=== PATIENT | female | born 1995 | race Caucasian/White ===

== ENCOUNTER 2021-03-24 20:28 | Observation (INO) | payer OTHER ==
[~2021-03-24] VITALS: Ht 167.7 cm; Wt 68.0 kg
--- NOTE | 2021-03-24 20:56 | ED General ---
General Stated Complaint: REDNESS/RASH/THROAT BLISTERS Source of Information: Patient Exam Limitations: No Limitations History of Present Illness Date Seen by Provider: Mar 24, 2021 Time Seen by Provider: 20:52 Initial Comments to ER with reports of diffuse rash onset this morning, oral lesions onset this evening. She finished Augmentin 2 days ago for an upper respiratory infection. 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 She had some diarrhea without blood or mucus the past few days. The upper respiratory infection symptoms have improved. Mother gave the patient some Depo-Medrol 80 mg, Tagamet and Zyrtec this evening which seemed to improve her symptoms. No fevers. She does have a history of urticaria Timing/Duration: 1-2 Days Severity: Moderate Associated Systoms: Denies Symptoms Allergies and Home Medications Allergies Coded Allergies: No Known Drug Allergies (Unverified , 03/24/21) Patient Home Medication List Home Medication List Reviewed: Yes Review of Systems Review of Systems Constitutional: see HPI EENTM: see HPI Physical Exam Vital Signs Vital Signs - First Documented 03/24/21 20:42 Temp 36.9 Pulse 113 Resp 18 B/P (MAP) 132/89 (103) Pulse Ox 96 O2 Delivery Room Air Capillary Refill : Height, Weight, BMI Height: '" Weight: lbs. oz. kg; BMI Method: General Appearance: No Apparent Distress, WD/WN Eyes: Bilateral Eye Normal Inspection, Bilateral Eye PERRL, Bilateral Eye EOMI HEENT: PERRL/EOMI, TMs Normal, Other (Ulcers on the soft palate, erythema of the pharynx. Whitish hairy tongue. No involvement of vermilion border) Neck: Full Range of Motion, Normal Inspection Respiratory: No Accessory Muscle Use, No Respiratory Distress Cardiovascular: Regular Rate, Rhythm, Normal Peripheral Pulses Gastrointestinal: Normal Bowel Sounds, Non Tender, Soft Extremity: Normal Capillary Refill, Normal Inspection Neurologic/Psychiatric: Alert, Oriented x3 Skin: Normal Color, Warm/Dry Lymphatic: Other (Diffuse macular rash without sloughing of skin or bulla. Negative Nikolsky sign) Progress/Results/Core Measures Suspected Sepsis SIRS Temperature: Pulse: Respiratory Rate: Laboratory Tests 03/24/21 20:55: White Blood Count 7.6 Blood Pressure / Mean: Laboratory Tests 03/24/21 20:55: Creatinine 0.80, Platelet Count 341, Total Bilirubin 0.7 Results/Orders Lab Results Laboratory Tests Test 03/24/21 20:55 Range/Units White Blood Count 7.6 4.3-11.0 10^3/uL Red Blood Count 5.34 H 3.80-5.11 10^6/uL Hemoglobin 16.3 H 11.5-16.0 g/dL Hematocrit 47 35-52 % Mean Corpuscular Volume 88 80-99 fL Mean Corpuscular Hemoglobin 31 25-34 pg Mean Corpuscular Hemoglobin Concent 35 32-36 g/dL Red Cell Distribution Width 12.1 10.0-14.5 % Platelet Count 341 130-400 10^3/uL Mean Platelet Volume 10.4 9.0-12.2 fL Immature Granulocyte % (Auto) 0 % Neutrophils (%) (Auto) 72 42-75 % Lymphocytes (%) (Auto) 21 12-44 % Monocytes (%) (Auto) 7 0-12 % Eosinophils (%) (Auto) 0 0-10 % Basophils (%) (Auto) 0 0-10 % Neutrophils # (Auto) 5.5 1.8-7.8 10^3/uL Lymphocytes # (Auto) 1.6 1.0-4.0 10^3/uL Monocytes # (Auto) 0.5 0.0-1.0 10^3/uL Eosinophils # (Auto) 0.0 0.0-0.3 10^3/uL Basophils # (Auto) 0.0 0.0-0.1 10^3/uL Immature Granulocyte # (Auto) 0.0 0.0-0.1 10^3/uL Erythrocyte Sedimentation Rate 2 0-20 MM/HR Sodium Level 140 135-145 MMOL/L Potassium Level 3.2 L 3.6-5.0 MMOL/L Chloride Level 102 98-107 MMOL/L Carbon Dioxide Level 26 21-32 MMOL/L Anion Gap 12 5-14 MMOL/L Blood Urea Nitrogen 12 7-18 MG/DL Creatinine 0.80 0.60-1.30 MG/DL Estimat Glomerular Filtration Rate > 60 BUN/Creatinine Ratio 15 Glucose Level 120 H 70-105 MG/DL Calcium Level 9.5 8.5-10.1 MG/DL Corrected Calcium 9.1 8.5-10.1 MG/DL Total Bilirubin 0.7 0.1-1.0 MG/DL Aspartate Amino Transf (AST/SGOT) 18 5-34 U/L Alanine Aminotransferase (ALT/SGPT) 14 0-55 U/L Alkaline Phosphatase 71 40-136 U/L C-Reactive Protein High Sensitivity 0.59 H 0.00-0.50 MG/DL Total Protein 7.9 6.4-8.2 GM/DL Albumin 4.5 3.2-4.5 GM/DL My Orders Orders - DIONY BRANCH APRN Cbc With Automated Diff (03/24/21 20:48) Hs C Reactive Protein (03/24/21 20:48) Comprehensive Metabolic Panel (03/24/21 20:48) Ed Iv/Invasive Line Start (03/24/21 20:48) Erythrocyte Sedimentation Rate (03/24/21 21:06) Lactated Ringers (Lr 1000 Ml Iv Solution (03/24/21 21:30) Diphenhydramine Injection (Benadryl Inje (03/24/21 21:45) Vital Signs/I&O 03/24/21 20:42 Temp 36.9 Pulse 113 Resp 18 B/P (MAP) 132/89 (103) Pulse Ox 96 O2 Delivery Room Air Capillary Refill : Departure Communication (Admissions) Mother is a nurse practitioner here, concerned this may represent a Avelar- Sudarshan syndrome. To me this looks more like a viral exanthem with some ulcers in the throat and likely medical center representative of a viral syndrome given her recent symptoms. However we will check some labs. 2137-has now developed some urticaria to various points on her arms torso and forehead. Itchy. I spoke with Dr. Sabillon, will admit observation status supportive care Impression Primary Impression: Rash and nonspecific skin eruption Additional Impression: Ulcerative pharyngitis Disposition: ADMITTED INPATIENT Condition: Stable Departure-Patient Inst. Decision time for Depature: 21:46 Referrals: NO,LOCAL PHYSICIAN (PCP/Family) Primary Care Physician DIONY BRANCH APRN Mar 24, 2021 20:56
[2021-03-24 21:06] LABS: BASOPHILS % (AUTO) 0 % (0-10); EOSINOPHILS % (AUTO) 0 % (0-10); HEMATOCRIT 47 % (35-52); HEMOGLOBIN 16.3 g/dL (11.5-16.0); LYMPHOCYTES # (AUTO) 1.6 10^3/uL (1.0-4.0); LYMPHOCYTES % (AUTO) 21 % (12-44); MEAN CORPUSCULAR HEMOGLOBIN 31 pg (25-34); MEAN CORPUSCULAR HGB CONC 35 g/dL (32-36); MEAN CORPUSCULAR VOLUME 88 fL (80-99); MEAN PLATELET VOLUME 10.4 fL (9.0-12.2); MONOCYTES # (AUTO) 0.5 10^3/uL (0.0-1.0); MONOCYTES % (AUTO) 7 % (0-12); NEUTROPHILS # (AUTO) 5.5 10^3/uL (1.8-7.8); NEUTROPHILS % (AUTO) 72 % (42-75); PLATELET COUNT 341 10^3/uL (130-400); WHITE BLOOD COUNT 7.6 10^3/uL (4.3-11.0)
[2021-03-24] MEDS ORDERED: LACTATED RINGERS 1,000 ML IV SCH (21:30)
[2021-03-24 21:36] LABS: ALANINE AMINOTRANSFERASE 14 U/L (0-55); ALBUMIN 4.5 GM/DL (3.2-4.5); ALKALINE PHOSPHATASE 71 U/L (40-136); BILIRUBIN,TOTAL 0.7 MG/DL (0.1-1.0); BUN/CREATININE RATIO 15; CALCIUM 9.5 MG/DL (8.5-10.1); CARBON DIOXIDE 26 MMOL/L (21-32); CHLORIDE 102 MMOL/L (98-107); GFR ESTIMATED > 60; GLUCOSE 120 MG/DL (70-105); POTASSIUM 3.2 MMOL/L (3.6-5.0); SODIUM 140 MMOL/L (135-145); TOTAL PROTEIN 7.9 GM/DL (6.4-8.2)
[2021-03-24] MEDS ORDERED: diphenhydrAMINE 50 MG/ML INJ (BENADRYL) IVP ONE ×2 (21:45→22:30)
[2021-03-24] MEDS ORDERED: KCL 20 MEQ TAB (K-DUR) PO ONE (22:00)
[2021-03-24] MEDS ORDERED: methylPREDNISolone 40 MG/ML (Solu-MEDROL) VIAL IV ONE (22:30)
[2021-03-24] MEDS ORDERED: FAMOTIDINE 20MG/2ML IV (PEPCID) IVP ONE (22:30)
[2021-03-24 22:52] VITALS: BP 124/85
[2021-03-24] MEDS: LACTATED RINGERS 1,000 ML IV SCH (23:04)
[2021-03-24] MEDS ORDERED: ACETAMINOPHEN 325 MG TABLET PO PRN (23:15)
[2021-03-24] MEDS ORDERED: EPINEPHrine INJECTION 1 MG/ML AMP IM PRN (23:15)
[2021-03-25 03:52] VITALS: BP 92/58
[2021-03-25] MEDS: diphenhydrAMINE 50 MG/ML INJ (BENADRYL) IV PRN ×5 (04:03→20:59)
[2021-03-25 05:01] LABS: BASOPHILS % (AUTO) 0 % (0-10); EOSINOPHILS % (AUTO) 0 % (0-10); HEMATOCRIT 40 % (35-52); HEMOGLOBIN 13.2 g/dL (11.5-16.0); LYMPHOCYTES # (AUTO) 0.7 10^3/uL (1.0-4.0); LYMPHOCYTES % (AUTO) 15 % (12-44); MEAN CORPUSCULAR HEMOGLOBIN 30 pg (25-34); MEAN CORPUSCULAR HGB CONC 33 g/dL (32-36); MEAN CORPUSCULAR VOLUME 89 fL (80-99); MEAN PLATELET VOLUME 10.7 fL (9.0-12.2); MONOCYTES # (AUTO) 0.1 10^3/uL (0.0-1.0); MONOCYTES % (AUTO) 2 % (0-12); NEUTROPHILS # (AUTO) 3.5 10^3/uL (1.8-7.8); NEUTROPHILS % (AUTO) 82 % (42-75); PLATELET COUNT 265 10^3/uL (130-400); WHITE BLOOD COUNT 4.2 10^3/uL (4.3-11.0)
[2021-03-25 05:28] LABS: CHLORIDE 107 MMOL/L (98-107); POTASSIUM 3.9 MMOL/L (3.6-5.0); SODIUM 141 MMOL/L (135-145)
[2021-03-25 05:29] LABS: CALCIUM 8.4 MG/DL (8.5-10.1)
[2021-03-25 05:30] LABS: GLUCOSE 138 MG/DL (70-105)
[2021-03-25 05:31] LABS: CARBON DIOXIDE 22 MMOL/L (21-32)
[2021-03-25 05:34] LABS: CREATININE SERUM 0.74 MG/DL (0.60-1.30); GFR ESTIMATED > 60
[2021-03-25 05:35] LABS: BUN/CREATININE RATIO 12
[2021-03-25] MEDS: LACTATED RINGERS 1,000 ML IV SCH ×3 (06:03→22:21)
[2021-03-25 07:58] VITALS: BP 108/61
[2021-03-25] MEDS ORDERED: predniSONE 20 MG TAB PO ONE (11:00)
[2021-03-25] MEDS ORDERED: FAMOTIDINE 20 MG (PEPCID) TABLET PO ONE (11:00)
[2021-03-25 12:00] VITALS: BP 105/58
--- NOTE | 2021-03-25 12:55 | History & Physical-Hospitalist ---
History of Present Illness HPI/Chief Complaint Latha Mcclain is a 25-year-old female who presented with sore throat and rash. She had a recent upper respiratory infection. Her symptoms started with a cough. She also had some congestion and nasal drainage. She was treated with a course of Augmentin. She subsequently developed a sore throat and pharyngeal ulcers. She developed hives on her entire body. She was given a dose of steroids and Benadryl. Her rash improved. It subsequently returned by had improved with Benadryl. She has had issues with hives in the past. She denies any throat swelling or trouble breathing. She denies any fevers or chills. She has no known drug allergies. Source: patient Exam Limitations: no limitations Date Seen 03/25/21 Time Seen by a Provider: 09:40 Attending Physician Mary Sabillon DO PCP No,Local Physician Referring Physician Date of Admission Mar 24, 2021 at 21:12 Home Medications & Allergies Home Medications Reviewed patient Home Medication Reconciliation performed by pharmacy medication reconciliations polygraph technician and/or nursing. Patients Allergies have been reviewed. Allergies Allergies Coded Allergies No Known Drug Allergies (Unverified03/24/21) Past Eigynom-Yucbym-Vwnorl Hx Patient Social History Smoking Status: Never a Smoker Substance use?: No Alcohol Use?: No Pt feels they are or have been: No Immunizations Up To Date First/Initial COVID19 Vaccinat: November 2020 Second COVID19 Vaccination Tom: November 2020 Seasonal Allergies Seasonal Allergies: No Current Status Advance Directives: No Communicates: Verbally Primary Language: Korean Preferred Spoken Language: Korean Is interpretation needed?: No Implanted or Applied Medical D: None Past Medical History Surgeries: Tonsillectomy Recent Skin Changes Family Medical History Reviewed Nursing Family Hx No Pertinent Family Hx Review of Systems Constitutional: no symptoms reported EENTM: throat pain Respiratory: cough Cardiovascular: no symptoms reported Gastrointestinal: no symptoms reported Genitourinary: no symptoms reported Musculoskeletal: no symptoms reported Skin: rash Psychiatric/Neurological: No Symptoms Reported Physical Exam Physical Exam Vital Signs Vital Signs - First Documented 03/24/21 20:42 Temp 36.9 Pulse 113 Resp 18 B/P (MAP) 132/89 (103) Pulse Ox 96 O2 Delivery Room Air Capillary Refill : Less Than 3 Seconds Height, Weight, BMI Height: '" Weight: lbs. oz. kg; 24.17 BMI Method: General Appearance: No Apparent Distress, WD/WN HEENT: PERRL/EOMI, Pharyngeal Erythema (Pharyngeal ulcers) Neck: Normal Inspection, Supple Respiratory: Lungs Clear, Normal Breath Sounds, No Respiratory Distress Cardiovascular: Regular Rate, Rhythm, No Edema, No Murmur Gastrointestinal: Normal Bowel Sounds, Non Tender, Soft Extremity: Normal Inspection, Non Tender, No Pedal Edema Neurologic/Psychiatric: Alert, Oriented x3, No Motor/Sensory Deficits, Normal Mood/Affect Skin: Normal Color, Warm/Dry Lymphatic: No Adenopathy Results Results/Procedures Labs Laboratory Tests 03/24/21 20:55 03/25/21 04:35 Patient resulted labs reviewed. Assessment/Plan Admission Diagnosis Acute pharyngitis and urticaria Admission Status: Observation Assessment and Plan Acute pharyngitis Urticaria Possible mycoplasma pneumonia infection Recent URI Started on Prednisone Benadryl as needed Famotidine Check rapid strep and culture Check Mycoplasma antibodies Diagnosis/Problems Diagnosis/Problems (1) Acute pharyngitis Status: Acute (2) Urticaria Status: Acute (3) Recent URI Status: Acute LILIBETH ORTIZ MD Mar 25, 2021 12:55
[2021-03-25 16:17] VITALS: BP 114/63
[2021-03-25 20:37] VITALS: BP 107/59
[2021-03-25] MEDS: FAMOTIDINE 20 MG (PEPCID) TABLET PO SCH (20:59)
[2021-03-25 23:44] VITALS: BP 105/68
[2021-03-26 04:11] VITALS: BP 91/54
[2021-03-26] MEDS: LACTATED RINGERS 1,000 ML IV SCH (06:10)
[2021-03-26] MEDS ORDERED: predniSONE 20 MG TAB PO SCH (07:00)
[2021-03-26 07:41] VITALS: BP 118/63
[2021-03-26] MEDS: FAMOTIDINE 20 MG (PEPCID) TABLET PO SCH (09:12)
[2021-03-26] MEDS ORDERED: PRED10TA22 PO (11:01)
[2021-03-26] MEDS ORDERED: AZIT250T PO (11:01)
[2021-03-26] MEDS ORDERED: EPIN0.3P2 IJ (11:01)
--- NOTE | 2021-03-26 11:27 | Discharge Summary ---
Discharge Summary Hospital Course Was the Problem List Reviewed?: Yes Problems/Dx: (1) Acute pharyngitis Status: Acute (2) Urticaria Status: Acute (3) Recent URI Status: Acute Hospital Course Date of Admission: Mar 24, 2021 at 21:12 Admission Diagnosis: Acute pharyngitis and urticaria Family Physician/Provider: Oralia,Local Physician Date of Discharge: 03/26/21 Discharge Diagnosis: Acute pharyngitis and urticaria Hospital Course: Latha Mcclain is a 25-year-old female who was admitted with acute pharyngitis and urticaria. She was tested for strep which was negative. She was tested for mycoplasma which was pending at the time of discharge. She was treated with steroids and antihistamines and improved. She was discharged with a steroid taper. She was also given a Z-Fredo for possible mycoplasma pneumonia infection. She should continue Benadryl as needed for her urticaria. She plans to establish care with a primary care physician on Sunday. Labs and Pending Lab Test: Home Meds Active Epipen (Epinephrine) 0.3 Mg/0.3 Ml Auto.injct 0.3 Mg IJ PRN PRN 1 Days Zithromax (Azithromycin) 250 Mg Tablet 250 Mg PO UD TAKE 2 TABLETS TODAY, THEN TAKE 1 TABLET DAILY FOR 4 MORE DAYS Prednisone 10 Mg Tab.ds.pk 10 Mg PO DAILY Take 6 tabs(60mg)daily,decrease by 1 tab(10MG)daily. Assessment/Pt Instructions Take medications as prescribed. Complete your steroid taper. Complete your antibiotics even if you are feeling better. Establish care with a primary care physician. Return with worsening throat pain, swelling, shortness of breath, rash, or if you feel like you are getting worse. Discharge Planning: <30 minutes discharge planning Discharge Instructions Discharge Diet: No Restrictions Activity as Tolerated: Yes Discharge Physical Examination Vital Signs Vital Signs Date Time Temp Pulse Resp B/P (MAP) Pulse Ox O2 Delivery O2 Flow Rate FiO2 03/26/21 08:00 Room Air 03/26/21 07:41 36.5 84 18 118/63 (81) 97 General Appearance: No Apparent Distress, WD/WN HEENT: PERRL/EOMI, Pharyngeal Erythema (ulcerations) Respiratory: Lungs Clear, Normal Breath Sounds, No Respiratory Distress Cardiovascular: Regular Rate, Rhythm, No Edema, No Murmur Gastrointestinal: Normal Bowel Sounds, Non Tender, Soft Extremity: Normal Inspection, Non Tender, No Pedal Edema Skin: Normal Color, Warm/Dry Neurologic/Psychiatric: Alert, Oriented x3, No Motor/Sensory Deficits, Normal Mood/Affect Allergies: Coded Allergies: No Known Drug Allergies (Unverified , 03/24/21) Discharge Summary Date of Admission Mar 24, 2021 at 21:12 Date of Discharge Discharge Date: Mar 26, 2021 Discharge Time: 11:14 Admission Diagnosis Acute pharyngitis and urticaria Discharge Diagnosis Acute pharyngitis Urticaria Possible mycoplasma pneumonia infection Recent URI (1) Acute pharyngitis Status: Acute (2) Urticaria Status: Acute (3) Recent URI Status: Acute LILIBETH ORTIZ MD Mar 26, 2021 11:26
[2021-03-26 13:30] VITALS: BP 118/63
== END 2021-03-26 14:11 | disposition home or self-care (01) ==
LOC: EDUNIT# 20:28 → ER 20:30 → 4TH 21:12
PROVIDERS: ADMIT Internal Medicine; ATTEND Internal Medicine
DX: J02.9 Acute pharyngitis, unspecified (principal); L50.9 Urticaria, unspecified; J06.9 Acute upper respiratory infection, unspecified; R21 Rash and other nonspecific skin eruption
CPT/HCPCS: 36415; 80048; 80053; 85025; 85652; 86141; 86738; 87070; 87430; G0378